=== PATIENT | female | born 1960 | race Caucasian/White ===

== ENCOUNTER 2018-10-22 14:19 | Emergency (ER) | payer OTHER ==
[2018-10-22 14:39] VITALS: BP 117/72; PULSE 106; TEMP 98.4; BMI 26.2
[2018-10-22] MEDS ORDERED: DEXAMETHASONE SOD PHOSPHATE 10 MG/1 ML VIAL IM ONE (14:48)
--- NOTE | 2018-10-22 14:53 | PDOC ---
History of Present Illness - General Chief Complaint: Rash Stated Complaint: RASH Time Seen by Provider: 10/22/18 14:44 - History of Present Illness Initial Comments: 10/22/18 14:52 58 y/o F denies CM presents for evaluation of rash x1 week minimal relief with at home benadryl Past History - Past Medical History Asthma: Yes COPD: No Psychiatric Problems: Yes (DEPRESSION/ANXIETY) - Immunization History Immunization Up to Date: Yes - Suicide/Smoking/Psychosocial Hx Smoking History: Never smoked Information on smoking cessation initiated: No Hx Alcohol Use: No Drug/Substance Use Hx: No Review of Systems - Review of Systems Integumentary: Yes: Pruritus, Rash *Physical Exam - Vital Signs Last Vital Signs Temp Pulse Resp BP Pulse Ox 98.4 F 106 H 17 117/72 100 10/22/18 14:32 10/22/18 14:32 10/22/18 14:32 10/22/18 14:32 10/22/18 14:32 - Physical Exam Comments: 10/22/18 14:51 HEAD: NC/AT EYES: Conjuntiva clear Ears: Canals and TM's normal NOSE: No d/c THROAT: Moist mucous membrances, oral pharanx clear, uvula midline NECK: Supple without adenopathy CARDIAC: S1 S2 LUNGS: CTA Full and Equal breath sounds ABDOMEN: Soft NT ND MS: Full ROM in all joints without edema NEUROLOGIC: No gross sensory or motor deficits, NVID SKIN: Normal color and temperature no raised wheals R arm, hand and L hand and forearm Medical Decision Making - Medical Decision Making 10/22/18 14:50 will treat allergic reaction with wheals with decadron and home instructions discussed *DC/Admit/Observation/Transfer Diagnosis at time of Disposition: Allergic reaction - Discharge Dispostion Disposition: HOME Condition at time of disposition: Stable Decision to Admit order: No - Referrals Referrals: Marley Nye MD [Primary Care Provider] - - Patient Instructions Printed Discharge Instructions: DI for General Allergic Reactions Additional Instructions: You were treated in the emergency room today with a one time dose of a long acting steroid. Continue to take benadryl at home as directed. Return to the emergency room if symptoms worsen and follow up with you primary care physician in 1-2 days for further evaluation and treatment options without fail - Post Discharge Activity
[2018-10-22] MEDS ORDERED: diphenhydrAMINE HCL 25 MG CAPSULE (FP) PO ONE ×2 (14:58→15:02)
== END 2018-10-22 15:06 | disposition home or self-care (01) ==
LOC: JERFT 14:19
PROC: 3E023GC Introduction of Other Therapeutic Substance into Muscle, Percutaneous Approach (ICD-10-PCS; principal; 2018-10-22)
DX: T78.40XA Allergy, unspecified, initial encounter (principal); X58.XXXA Exposure to other specified factors, initial encounter
CPT/HCPCS: 96372; 99281-25; J1100

== ENCOUNTER 2018-10-31 13:49 | Emergency (ER) | payer OTHER ==
[2018-10-31 13:53] VITALS: BP 132/68; PULSE 93; TEMP 98; BMI 28.3
[2018-10-31] MEDS ORDERED: IBUPROFEN 400 MG TABLET (FP) PO ONE ×2 (14:12→15:13)
--- NOTE | 2018-10-31 15:04 | PDOC ---
History of Present Illness - General Chief Complaint: Pain Stated Complaint: LT.FOOT PAIN, KNEE PAIN Time Seen by Provider: 10/31/18 14:03 History Source: Patient Exam Limitations: No Limitations - History of Present Illness Initial Comments: 10/31/18 14:13 Patient is here with complaints of complaints including left foot pain. had a long trip with a lot of walking in [place], and feels that after that trip had onset of pain to her left foot. Denies shortness breath, chest pain, palpitations or other evidence of respiratory pathology including PE. Or DVT. States came from MRI today after steroid injections to cervical spine and right shoulder, and suffers from arthritis in multiple areas of her body. Has taken no medication for relief of her foot pain but took a Fioricet to help resolve the headache yesterday which helped her foot pain as well 10/31/18 15:16 Severity: reports: mild, moderate Pain Location: reports: lower extremity (left foot ) Method of Injury: Yes: unknown Modifying Factors: improves with: None Loss of Consciousness: no loss of consciousness Associated Symptoms (Fall): denies symptoms Past History - Travel Traveled outside of the country in the last 30 days: No Close contact w/someone who was outside of country & ill: No - Past Medical History Allergies/Adverse Reactions: Allergies Allergy/AdvReac Type Severity Reaction Status Date / Time cat dander Allergy Verified 10/31/18 13:55 dog dander Allergy Verified 10/31/18 13:55 pollen extracts Allergy Verified 10/31/18 13:55 Home Medications: Ambulatory Orders Naproxen [Naprosyn -] 500 mg PO BID #30 tablet 10/31/18 Asthma: Yes COPD: No Psychiatric Problems: Yes (DEPRESSION/ANXIETY) Other medical history: arthritis - Immunization History Immunization Up to Date: Yes - Suicide/Smoking/Psychosocial Hx Smoking History: Never smoked Information on smoking cessation initiated: No Hx Alcohol Use: No Drug/Substance Use Hx: No Review of Systems - Review of Systems Able to Perform ROS?: Yes Is the patient limited Welsh proficient: Yes Constitutional: Yes: Symptoms Reported, See HPI, Malaise. No: Fever HEENTM: Yes: See HPI. No: Symptoms Reported Respiratory: No: Symptoms reported ABD/GI: No: Symptoms Reported Musculoskeletal: Yes: See HPI, Muscle Pain. No: Symptoms Reported Integumentary: Yes: Symptoms Reported, See HPI. No: Bruising Neurological: Yes: See HPI. No: Symptoms reported, Headache All Other Systems: Reviewed and Negative *Physical Exam - Vital Signs Last Vital Signs Temp Pulse Resp BP Pulse Ox 98 F 93 H 19 132/68 100 10/31/18 13:51 10/31/18 13:51 10/31/18 13:51 10/31/18 13:51 10/31/18 13:51 - Physical Exam General Appearance: Yes: Nourished, Appropriately Dressed, Apparent Distress, Mild Distress HEENT: positive: SHIVA, Normal ENT Inspection, TMs Normal, Pharynx Normal Neck: positive: Supple. negative: Tender Respiratory/Chest: positive: Lungs Clear Gastrointestinal/Abdominal: positive: Soft Extremity: positive: Normal Capillary Refill, Normal Inspection, Normal Range of Motion (with some tenderness reproduced on dorsiflexion of the left foot to heel area, able to point foot but returning to neutral position patient has reproduced pain in Elias. Has no calf pain, negative Beach test, no knee tenderness or instability. Neurovascular intact to toes and pulses are palpable) . negative: Pedal Edema, Swelling, Calf Tenderness Integumentary: positive: Normal Color, Dry, Warm Neurologic: positive: skiver sock linings II-XII NML intact, Fully Oriented, Alert, Normal Mood/ Affect, Normal Response, Motor Strength / ED Treatment Course - RADIOLOGY Radiology Studies Ordered: Category Date Time Status FOOT-LEFT [RAD] Stat Radiology 10/31/18 14:12 Ordered Progress Note - Progress Note Progress Note: Plantar Fasciitis, we'll treat with NSAIDs. X-ray negative for fractures but note a large heel spur *DC/Admit/Observation/Transfer Diagnosis at time of Disposition: Plantar fasciitis - Discharge Dispostion Disposition: HOME Condition at time of disposition: Stable Decision to Admit order: No - Referrals - Patient Instructions Printed Discharge Instructions: DI for Plantar Fasciitis Additional Instructions: Rest, ice to area on and off for 15 minutes 4-6 times a day Avoid heavy lifting or exercise until pain and swelling is resolved or until further directed Keep area highly elevated to reduce swelling Wear supportive shoes/tennis shoes-sneakers Freeze water in a Coca-Cola bottle, and gently roll along bottom of foot to assist with icing the area Use splints/Sanya wrap as directed Followup with orthopedist in one to 2 days if not improving, if significantly improved may wait one week for followup with orthopedist May consider alternative modalities including physical therapy, acupuncture or pressure, naturopathic rubs like Arnica creams May use ibuprofen 2-200 mg tablets every 6 hours as needed for pain - Post Discharge Activity Forms/Work/School Notes: Back to Work
== END 2018-10-31 15:17 | disposition home or self-care (01) ==
LOC: JERFT 13:49
DX: M72.2 Plantar fascial fibromatosis (principal); M12.9 Arthropathy, unspecified
CPT/HCPCS: 73630-TC-LT; 99281-25

== ENCOUNTER 2019-05-08 14:37 | Emergency (ER) | payer OTHER ==
[2019-05-08 14:50] VITALS: BP 145/78; PULSE 91; TEMP 98.4; BMI 32.3
--- NOTE | 2019-05-08 16:41 | PDOC ---
History of Present Illness - General Chief Complaint: Cold Symptoms Stated Complaint: COUGH Time Seen by Provider: 05/08/19 16:27 - History of Present Illness Initial Comments: 05/08/19 16:39 58-year-old female with a past medical history of asthma presents for upper respiratory symptoms fever on the first day recent travel from [place] symptoms x4 days Past History - Past Medical History Allergies/Adverse Reactions: Allergies Allergy/AdvReac Type Severity Reaction Status Date / Time cat dander Allergy Verified 05/08/19 14:50 dog dander Allergy Verified 05/08/19 14:50 pollen extracts Allergy Verified 05/08/19 14:50 Home Medications: Ambulatory Orders Naproxen [Naprosyn -] 500 mg PO BID #30 tablet 10/31/18 Guaifenesin Dm [Mucinex Dm -] 1 tab PO BID #60 [id number] 05/08/19 Asthma: Yes COPD: No Psychiatric Problems: Yes (DEPRESSION/ANXIETY) - Immunization History Immunization Up to Date: Yes - Psycho Social/Smoking Cessation Hx Smoking History: Never smoked Hx Alcohol Use: No Drug/Substance Use Hx: No Review of Systems - Review of Systems Constitutional: Yes: Fever HEENTM: Yes: Nose Congestion Respiratory: Yes: Cough *Physical Exam - Vital Signs Last Vital Signs Temp Pulse Resp BP Pulse Ox 98.4 F 91 H 16 145/78 100 05/08/19 14:47 05/08/19 14:47 05/08/19 14:47 05/08/19 14:47 05/08/19 14:47 - Physical Exam 05/08/19 16:39 GENERAL: The patient is awake, alert, and fully oriented, in no acute distress. HEAD: Normal with no signs of trauma. EYES: sclera anicteric, conjunctiva clear. ENT: Ears normal tympanic membranes normal oropharynx clear uvula midline NECK: Normal range of motion LUNGS: Breath sounds equal, clear to auscultation bilaterally. No wheezes, and no crackles. HEART: S1 and S2 without murmur, rub or gallop. ABDOMEN: Soft, nontender, normoactive bowel sounds. No guarding, no rebound. No masses. EXTREMITIES: Normal range of motion, no edema. No clubbing or cyanosis. No cords, erythema, or tenderness. NEUROLOGICAL: Cranial nerves II through XII grossly intact. PSYCH: Normal mood, normal affect. SKIN: Warm, Dry, normal turgor, no rashes or lesions noted. Medical Decision Making - Medical Decision Making 05/08/19 16:39 Supportive care for viral upper respiratory infection I have reviewed the pathophysiology with the patient. They are in agreement with the treatment plan all questions were answered to their satisfaction. Understanding for follow-up without fail was also conveyed to the patient. Again they are in agreement. Discharge - Discharge Information Problems reviewed: Yes Clinical Impression/Diagnosis: Viral URI with cough Condition: Stable Disposition: HOME - Admission No - Follow up/Referral Referrals: Tony Singh MD [Primary Care Provider] - - Patient Discharge Instructions Additional Instructions: Supportive care. Maintain hydration with Pedialyte. Tylenol and Motrin as directed for fever and body aches. Return to the emergency room for worsening symptoms. And without fail follow-up with your primary care physician in 1 to 2 days for further evaluation and treatment options. Mucinex as directed for cough - Post Discharge Activity
== END 2019-05-08 16:46 | disposition home or self-care (01) ==
LOC: JERFT 14:37
DX: J06.9 Acute upper respiratory infection, unspecified (principal); B97.89 Other viral agents as the cause of diseases classified elsewhere; F41.8 Other specified anxiety disorders; F32.9 Major depressive disorder, single episode, unspecified; Z91.048 Other nonmedicinal substance allergy status
CPT/HCPCS: 99283-25